=== PATIENT | female | born 1970 ===

== ENCOUNTER 2017-02-05 09:17 | Emergency (ER) | payer MEDICAID, OTHER ==
[2017-02-05 10:17] VITALS: BP 113/58
--- NOTE | 2017-02-05 10:20 | UC ---
jaron Lewis Timothy, scribed for Sarah Seymour MD on 02/05/17 at 0946 . Complaint Female HPI - HPI Summary HPI Summary: Alexa Ghotra is a 46 yo female presenting to [facility] with vaginal bleeding since . She is accompanied by her sister in room. Pt notes only a small amount of blood when using the bathroom, and a positive home test 3 weeks ago with LNMP 11/27/16. She notes some nausea. When she sleeps on her right side she notes pain in her right abd, alleviated with change in position, most recently last night. She denies any current pain or fever, as well as FLOYD, eye pain, sore throat, CP, SOB, rash. Her MHx includes , faint heart murmur. A1, miscarriage. Her last was 2010, delivered 2011. She is from [place] and is visiting family. - History Of Current Complaint Chief Complaint: UCGU Stated Complaint: VAGINAL BLEEDING Time Seen by Provider: 02/05/17 09:58 Hx Obtained From: Patient Hx Last Menstrual Period: 11/27/16 Onset/Duration: Sudden Onset, Lasting Days, Still Present Timing: Constant Severity Initially: Moderate Severity Currently: Moderate Pain Intensity: 0 Pain Scale Used: 0-10 Numeric Associated Signs And Symptoms: Positive: Vaginal Bleeding/Discharge - Risk Factors Ectopic Risk Factor: Maternal Age ^ 30 - Allergies/Home Medications Allergies/Adverse Reactions: Allergies Allergy/AdvReac Type Severity Reaction Status Date / Time No Known Allergies Allergy Verified 02/05/17 09:25 Home Medications: Home Medications NK [No Home Medications Reported] 02/05/17 [History Confirmed 02/05/17] PMH/Surg Hx/FS Hx/Imm Hx Cardiovascular History: Other Other Cardiovascular History: murmur - Surgical History Surgical History: Yes Surgery Procedure, Year, and Place: c section - Family History Known Family History: Positive: Cardiac Disease, Diabetes - II Negative: Hypertension - Social History Alcohol Use: None Substance Use Type: None Smoking Status (MU): Never Smoked Tobacco Review of Systems Constitutional: Negative Skin: Negative Eyes: Negative ENT: Negative Respiratory: Negative Cardiovascular: Negative Gastrointestinal: Abdominal Pain - when sleeping on right side, Nausea Genitourinary: Other - vaginal bleeding Motor: Negative Neurovascular: Negative Musculoskeletal: Negative Neurological: Negative Psychological: Negative All Other Systems Reviewed And Are Negative: Yes Physical Exam Triage Information Reviewed: Yes Appearance: Well-Appearing, No Pain Distress, Well-Nourished Vital Signs: Initial Vital Signs Temp 99.1 F 02/05/17 09:19 Pulse 77 02/05/17 09:19 Resp 16 02/05/17 09:19 BP 121/65 02/05/17 09:19 Pulse Ox 100 02/05/17 09:19 Vital Signs Reviewed: Yes Eye Exam: Normal ENT Exam: Normal ENT: Positive: Normal ENT inspection Dental Exam: Normal Neck exam: Normal Neck: Positive: Supple, No Lymphadenopathy Respiratory Exam: Normal Respiratory: Positive: Chest non-tender, Lungs clear, Normal breath sounds, No respiratory distress Cardiovascular Exam: Normal Cardiovascular: Positive: RRR, Pulses Normal, Brisk Capillary Refill, Murmur:Sys :Grade _?_/ - I-II Abdominal Exam: Normal Abdomen Description: Positive: Nontender, No Organomegaly, Soft Bowel Sounds: Positive: Present Musculoskeletal Exam: Normal Musculoskeletal: Positive: Strength Intact Neurological Exam: Normal - nonfocal, grossly intact Psychological Exam: Normal - conversing easily and appropriately Skin Exam: Normal Skin: Negative: rashes Complaint Female Dx - Course Course Of Treatment: Alexa Ghotra is a 46 yo female presenting to [facility] with vaginal bleeding for the past day S/P positive home test 3 weeks ago, [facility] 11/27/16. Pt medication list reviewed this visit. Her urine test was positive. Urine dip noted. Pt was counseled the dangers of bleeding early in , and was counseled to present to [facility] for further evaluation and management. Pt was offered EMS for transport, which she declined. Pt will present to [facility] by private car, sister will drive. Pelvic exam deferred here. Pt was counseled to have imaging placed on a disc to be reviewed by her [facility] in [place]. She is not traveling for several days. - Differential Dx/Diagnosis Differential Diagnosis/HQI/PQRI: Other - miscarriage Provider Diagnoses: vaginal bleeding in - Physician Notifications Discussed Patient Care With: Emre Carter - Discussed Pt condition, will relay information to provider at [facility] Time Discussed With Above Provider: 10:13 Discharge - Discharge Plan Condition: Stable Disposition: [facility] Discharge Disposition Comment: transfer to [facility] by private car for further evaluation The documentation as recorded by the jaron whiting Timothy accurately reflects the service I personally performed and the decisions made by me, Sarah Seymour MD.
== END 2017-02-05 10:22 | disposition short-term general hospital (02) ==
LOC: UCEAST 09:17
DX: O20.9 Hemorrhage in early pregnancy, unspecified (principal); R11.0 Nausea; R10.9 Unspecified abdominal pain; Z3A.00 Weeks of gestation of pregnancy not specified
CPT/HCPCS: 81003; 84702; 87086; 99202; G0463

== ENCOUNTER 2017-02-05 11:36 | Emergency (ER) | payer OTHER ==
--- NOTE | 2017-02-05 15:50 | RAD ---
Indication: Vaginal bleeding. Real-time sonography of the was performed. There is a single intrauterine gestation with a gestational sac size of 1.8 cm. The mean sac size is approximately 4 mm. Estimated gestational age is 6 weeks 1 day. heart activity could not be documented. This may be due to early gestational age. Follow-up exam is suggested. The right ovary measures 2.4 x 2.0 x 1.9 cm. IMPRESSION: There is a single intrauterine gestation with a crown-rump length of approximately 4 mm corresponding to gestational age is 6 weeks 1 day. Estimated date of delivery is September 28, 2017. heart activity could not be definitively identified which may be due to early gestational age. Follow-up exam is suggested.
[2017-02-05 15:58] LABS: Hematocrit 37 % (35-47); Hemoglobin 12.4 g/dl (12.0-16.0); Mean Corpuscular HGB Conc 33 g/dl (31-36); Mean Corpuscular Hemoglobin 32 pg (27-31); Mean Corpuscular Volume 97 fL (80-97); Mean Platelet Volume 9 um3 (7.4-10.4); Red Blood Count 3.86 10^6/ul (4.0-5.4); Red Cell Distribution Width 13 % (10.5-15)
[2017-02-05 16:10] VITALS: BP 119/43
[2017-02-05 16:14] LABS: Albumin 4.2 g/dL (3.2-5.2); BUN/Creatinine Ratio 11.3 (8-20); Calcium 9.3 mg/dL (8.6-10.3); EGFR African American 160.4 (>60); EGFR Non-African American 124.7 (>60); Globulin 3.3 g/dL (2-4); Potassium 3.5 mmol/L (3.5-5.0); Total Bilirubin 0.7 mg/dL (0.2-1.0); Total Protein 7.5 g/dL (6.4-8.9)
--- NOTE | 2017-02-09 10:01 | ED ---
Kenna Lewis Thomas, scribed for Arcadoi Zimmerman MD on 02/05/17 at 1347 . GI/ HPI - HPI Summary HPI Summary: The pt is a 46 y/o F referred from [facility] and presenting to the ED c/o vaginal bleeding that began yesterday. The pt notes only a small amount of blood when using the bathroom. The pt had a positive home test 3 weeks ago and a positive urine test today at [facility] with LNMP 11/27/16. She has missed menses the last two months. She rates her current level of pain 0/10. The pt has been 4 times with 1 miscarriage. The pt is not yet taking vitamins. Estimated date of delivery September 28, 2017. Pt denies abd pain, genital pain, vaginal discharge, CP, SOB. The pt has been 4 times with 1 miscarriage. PMHx: , murmur, A1, miscarriage. Last 2010, delivered 2011. SHx: no tobacco use. The pt lives in [place] and returns there in three weeks. - History of Current Complaint Chief Complaint: EDVaginalBleeding Stated Complaint: ,NEEDS US/SENT BY CC Hx Obtained From: Patient Onset/Duration: Started Days Ago - 1 day, Still Present Timing: Constant Severity: Mild Pain Intensity: 0 Associated Signs and Symptoms: Negative: Discharge, Abdominal Pain, Chest Pain, Other: - NEG: genital pain, SOB Additional Signs & Symptoms: Positive: Positive Test, Other: - missed menses the last 2 months - Allergy/Home Medications Allergies/Adverse Reactions: Allergies Allergy/AdvReac Type Severity Reaction Status Date / Time No Known Allergies Allergy Verified 02/05/17 13:15 PMH/Surg Hx/FS Hx/Imm Hx Previously Healthy: No Cardiovascular History: Reports: Other Cardiovascular Problems/Disorders - Hx murmur Opthamlomology History: Denies: Hx Legally Blind - Surgical History Surgery Procedure, Year, and Place: Infectious Disease History: No Infectious Disease History: Denies: Traveled Outside the [place] in Last 30 Days - Family History Known Family History: Positive: Cardiac Disease, Diabetes - II Negative: Hypertension - Social History Alcohol Use: None Substance Use Type: Reports: None Smoking Status (MU): Never Smoked Tobacco Review of Systems Constitutional: Negative Negative: Fever, Chills Eyes: Negative Negative: Erythema - eyes ENT: Negative Negative: Sore Throat Cardiovascular: Negative Negative: Chest Pain Respiratory: Negative Negative: Shortness Of Breath Gastrointestinal: Negative Negative: Abdominal Pain, Vomiting, Nausea Genitourinary: Other - POS: vaginal bleeding, small amount, onset yesterday Negative: dysuria, hematuria Musculoskeletal: Negative Negative: Edema - leg Skin: Negative Negative: Rash Neurological: Negative, Other - NEG: dizziness Psychological: Normal All Other Systems Reviewed And Are Negative: Yes Physical Exam - Summary Physical Exam Summary: Constitutional: Well-developed, Well-nourished, Alert. (-) Distressed Skin: Warm, Dry HENT: Normocephalic; Atraumatic Eyes: Conjunctiva normal Neck: Musculoskeletal ROM normal neck. (-) JVD, (-) Stridor, (-) Tracheal deviation Cardio: Rhythm regular, rate normal, Heart sounds normal; Intact distal pulses; The pedal pulses are 2+ and symmetric. Radial pulses are 2+ and symmetric. (-) Murmur Pulmonary/Chest wall: Effort normal. (-) Respiratory distress, (-) Wheezes, (-) Rales Abd: Soft, (-) Tenderness, (-) Distension, (-) Guarding, (-) Rebound Musculoskeletal: (-) Edema Lymph: (-) Cervical adenopathy Neuro: Alert, Oriented x3 Psych: Mood and affect Normal Triage Information Reviewed: Yes Vital Signs On Initial Exam: Initial Vitals Temp Pulse Resp BP Pulse Ox 98.7 F 66 20 126/49 99 02/05/17 11:47 02/05/17 11:47 02/05/17 11:47 02/05/17 11:47 02/05/17 11:47 Vital Signs Reviewed: Yes - Valerie Coma Scale Coma Scale Total: 15 Diagnostics - Vital Signs Vital Signs Temp Pulse Resp BP Pulse Ox 02/05/17 13:09 98.9 F 66 20 126/49 98 02/05/17 11:47 98.7 F 66 20 126/49 99 - Laboratory Lab Results: Lab Results 02/05/17 02/05/17 02/05/17 Range/Units 15:40 15:40 15:40 WBC 8.0 (3.5-10.8) 10^3/ul RBC 3.86 L (4.0-5.4) 10^6/ul Hgb 12.4 (12.0-16.0) g/dl Hct 37 (35-47) % MCV 97 (80-97) fL MCH 32 H (27-31) pg MCHC 33 (31-36) g/dl RDW 13 (10.5-15) % Plt Count 274 (150-450) 10^3/ul MPV 9 (7.4-10.4) um3 Neut % (Auto) 66.5 (38-83) % Lymph % (Auto) 25.2 (25-47) % [place] % (Auto) 7.1 (1-9) % Eos % (Auto) 0.5 (0-6) % Baso % (Auto) 0.7 (0-2) % Absolute Neuts (auto) 5.3 (1.5-7.7) 10^3/ul Absolute Lymphs (auto) 2.0 (1.0-4.8) 10^3/ul Absolute Monos (auto) 0.6 (0-0.8) 10^3/ul Absolute Eos (auto) 0 (0-0.6) 10^3/ul Absolute Basos (auto) 0.1 (0-0.2) 10^3/ul Absolute Nucleated RBC 0.01 10^3/ul Nucleated RBC % 0.1 Sodium 138 (133-145) mmol/L Potassium 3.5 (3.5-5.0) mmol/L Chloride 106 (101-111) mmol/L Carbon Dioxide 25 (22-32) mmol/L Anion Gap 7 (2-11) mmol/L BUN 6 (6-24) mg/dL Creatinine 0.53 (0.51-0.95) mg/dL Est GFR ( Amer) 160.4 (>60) Est GFR (Non-Af Amer) 124.7 (>60) BUN/Creatinine Ratio 11.3 (8-20) Glucose 91 (70-100) mg/dL Lactic Acid (0.5-2.0) mmol/L Calcium 9.3 (8.6-10.3) mg/dL Total Bilirubin 0.70 (0.2-1.0) mg/dL AST 12 L (13-39) U/L ALT 9 (7-52) U/L Alkaline Phosphatase 43 (34-104) U/L Total Protein 7.5 (6.4-8.9) g/dL Albumin 4.2 (3.2-5.2) g/dL Globulin 3.3 (2-4) g/dL Albumin/Globulin Ratio 1.3 (1-3) Beta HCG, Quant 5176.00 mIU/mL Blood Type O Positive Antibody Screen Negative 02/05/17 Range/Units 15:40 WBC (3.5-10.8) 10^3/ul RBC (4.0-5.4) 10^6/ul Hgb (12.0-16.0) g/dl Hct (35-47) % MCV (80-97) fL MCH (27-31) pg MCHC (31-36) g/dl RDW (10.5-15) % Plt Count (150-450) 10^3/ul MPV (7.4-10.4) um3 Neut % (Auto) (38-83) % Lymph % (Auto) (25-47) % [place] % (Auto) (1-9) % Eos % (Auto) (0-6) % Baso % (Auto) (0-2) % Absolute Neuts (auto) (1.5-7.7) 10^3/ul Absolute Lymphs (auto) (1.0-4.8) 10^3/ul Absolute Monos (auto) (0-0.8) 10^3/ul Absolute Eos (auto) (0-0.6) 10^3/ul Absolute Basos (auto) (0-0.2) 10^3/ul Absolute Nucleated RBC 10^3/ul Nucleated RBC % Sodium (133-145) mmol/L Potassium (3.5-5.0) mmol/L Chloride (101-111) mmol/L Carbon Dioxide (22-32) mmol/L Anion Gap (2-11) mmol/L BUN (6-24) mg/dL Creatinine (0.51-0.95) mg/dL Est GFR ( Amer) (>60) Est GFR (Non-Af Amer) (>60) BUN/Creatinine Ratio (8-20) Glucose (70-100) mg/dL Lactic Acid 0.8 (0.5-2.0) mmol/L Calcium (8.6-10.3) mg/dL Total Bilirubin (0.2-1.0) mg/dL AST (13-39) U/L ALT (7-52) U/L Alkaline Phosphatase (34-104) U/L Total Protein (6.4-8.9) g/dL Albumin (3.2-5.2) g/dL Globulin (2-4) g/dL Albumin/Globulin Ratio (1-3) Beta HCG, Quant mIU/mL Blood Type Antibody Screen Result Diagrams: 02/05/17 15:40 02/05/17 15:40 Lab Statement: Any lab studies that have been ordered have been reviewed, and results considered in the medical decision making process. - Additional Comments Diagnostic Additional Comments: US Transvaginal. Interpreted by Radiologist. Impression: There is a single intrauterine gestation with a crown-rump length of approximately 4 mm corresponding to gestational age is 6 weeks 1 day. Estimated date of delivery is September 28, 2017. heart activity could not be definitively identified which may be due to early gestational age. Follow-up exam is suggested. GIGU Course/Dx - Course Assessment/Plan: The pt is a 46 y/o F referred from [facility] and presenting to the ED c/o vaginal bleeding that began yesterday. The pt notes only a small amount of blood when using the bathroom. The pt had a positive home test 3 weeks ago and a positive urine test today at [facility] with LNMP 11/27/16. She has missed menses the last two months. She rates her current level of pain 0/10. The pt has been 4 times with 1 miscarriage. The pt is not yet taking vitamins. Estimated date of delivery September 28, 2017. Pt denies abd pain , genital pain, vaginal discharge, CP, SOB. The pt has been 4 times with 1 miscarriage. PMHx: , murmur, A1, miscarriage. Last 2010, delivered 2011. SHx: no tobacco use. The pt lives in [place] and returns there in three weeks. Bloodwork reveals RBC 3.86, MCH 32, AST 12. An US Transvaginal reveals There is a single intrauterine gestation with a crown- rump length of. approximately 4 mm corresponding to gestational age is 6 weeks 1 day. Estimated date of. delivery is September 28, 2017. heart activity could not be definitively identified. which may be due to early gestational age. Follow-up exam is suggested. Patient will be discharged home as stable with follow up from [facility], in three days. Pt is diagnosed with bleeding in early and was told that she needs repeat bloodwork. Pt is agreeable with this plan. She does understand the potential for threatened . - Diagnoses Provider Diagnoses: Bleeding in early Discharge - Discharge Plan Condition: Stable Disposition: HOME Prescriptions: Vit W/ Ferrous Fumara [ Complete] 1 tab PO DAILY #30 tab Patient Education Materials: First Trimester Vaginal Bleed (ED) Referrals: Kodi Garcia MD [Medical Doctor] - 3 Days Additional Instructions: RETURN TO THE EMERGENCY DEPARTMENT FOR CHANGING OR WORSENING SYMPTOMS Also, you need to have repeat bloodwork performed. The documentation as recorded by the Kenna whiting Thomas accurately reflects the service I personally performed and the decisions made by me, Arcadio Zimmerman MD.
== END 2017-02-05 16:08 | disposition home or self-care (01) ==
LOC: ED 11:36
DX: O46.91 Antepartum hemorrhage, unspecified, first trimester (principal); Z3A.01 Less than 8 weeks gestation of pregnancy
CPT/HCPCS: 36415; 76817; 80053; 83605; 84702; 85025; 86850; 86900; 86901; 99282

== ENCOUNTER 2017-02-06 16:23 | Emergency (ER) | payer OTHER ==
[2017-02-06 17:28] LABS: Hematocrit 37 % (35-47); Hemoglobin 12.6 g/dl (12.0-16.0); Mean Corpuscular HGB Conc 34 g/dl (31-36); Mean Corpuscular Hemoglobin 32 pg (27-31); Mean Corpuscular Volume 96 fL (80-97); Mean Platelet Volume 9 um3 (7.4-10.4); Red Blood Count 3.88 10^6/ul (4.0-5.4); Red Cell Distribution Width 13 % (10.5-15)
[2017-02-06 18:43] VITALS: BP 113/60
--- NOTE | 2017-02-07 16:23 | ED ---
Lisandro Lewis Alok, scribed for Naseem Barajas MD on 02/06/17 at 1737 . - HPI Summary HPI Summary: 46F presents to the ED for vaginal bleeding and lower abd pain. Pt is 6 weeks GPA = 4, 2, 1. Pt had sections for both of her children. Pt was last seen at the ED yesterday for light vaginal bleeding and had blood work and US done. Today, pt notes much heavier vaginal bleeding with some clotting, having bleed through 4-5 pads. Her LMP was November 27. Pt recently traveled from [place] to [place] one month ago and is staying until February. - History of Current Complaint Chief Complaint: EDVaginalBleeding Stated Complaint: STOMACH CRAMPS/HEAVY BLEEDING 6KWS PREG Time Seen by Provider: 02/06/17 16:55 Hx Obtained From: Patient Chief Complaint: Pain, Vaginal Bleeding Onset/Duration: Started Days Ago, Atraumatic, Still Present, Worse Since - Today Timing: Constant Severity: Moderate Current Severity: Moderate Pain Intensity: 5 Character: Cramping Aggravating Factors: Nothing Alleviating Factors: Nothing Associated Signs and Symptoms: Positive: Vaginal Bleeding or Discharge - Assessment Hx Now: Yes - Allergies/Home Medications Allergies/Adverse Reactions: Allergies Allergy/AdvReac Type Severity Reaction Status Date / Time No Known Allergies Allergy Verified 02/05/17 13:15 PMH/Surg Hx/FS Hx/Imm Hx Endocrine/Hematology History: Denies: Hx Diabetes Cardiovascular History: Denies: Hx Hypertension - Surgical History Surgery Procedure, Year, and Place: c section Infectious Disease History: No Infectious Disease History: Denies: Traveled Outside the in Last 30 Days - Family History Known Family History: Positive: Cardiac Disease, Diabetes - II Negative: Hypertension - Social History Occupation: Unemployed Alcohol Use: None Substance Use Type: Reports: None Smoking Status (MU): Never Smoked Tobacco Review of Systems Negative: Fever Positive: Abdominal Pain Genitourinary: Other - vaginal bleeding All Other Systems Reviewed And Are Negative: Yes Physical Exam - Physical Exam Triage Information Reviewed: Yes Vital Signs On Initial Exam: Initial Vital Signs Temp 97.3 F 02/06/17 16:26 Pulse 75 02/06/17 16:26 Resp 18 02/06/17 16:26 BP 123/70 02/06/17 16:26 Vital Signs Reviewed: Yes Appearance: Positive: Well-Appearing, No Pain Distress Skin: Positive: Warm, Skin Color Reflects Adequate Perfusion, Dry Head/Face: Positive: Normal Head/Face Inspection Eyes: Positive: Normal ENT: Positive: Normal ENT inspection Neck: Positive: Supple, Nontender Respiratory/Lung Sounds: Positive: Clear to Auscultation, Breath Sounds Present Cardiovascular: Positive: RRR Abdomen Description: Positive: Nontender, Soft Bowel Sounds: Positive: Present Musculoskeletal: Positive: Normal Neurological: Positive: Normal Psychiatric: Positive: Normal, Affect/Mood Appropriate Diagnostics - Vital Signs Vital Signs Temp Pulse Resp BP Pulse Ox 02/06/17 16:52 97.3 F 73 16 118/52 100 02/06/17 16:26 97.3 F 75 18 123/70 - Laboratory Lab Results: Lab Results 02/06/17 02/06/17 Range/Units 17:25 17:25 WBC 11.0 H (3.5-10.8) 10^3/ul RBC 3.88 L (4.0-5.4) 10^6/ul Hgb 12.6 (12.0-16.0) g/dl Hct 37 (35-47) % MCV 96 (80-97) fL MCH 32 H (27-31) pg MCHC 34 (31-36) g/dl RDW 13 (10.5-15) % Plt Count 268 (150-450) 10^3/ul MPV 9 (7.4-10.4) um3 Neut % (Auto) 74.4 (38-83) % Lymph % (Auto) 17.4 L (25-47) % [place] % (Auto) 7.3 (1-9) % Eos % (Auto) 0.3 (0-6) % Baso % (Auto) 0.6 (0-2) % Absolute Neuts (auto) 8.2 H (1.5-7.7) 10^3/ul Absolute Lymphs (auto) 1.9 (1.0-4.8) 10^3/ul Absolute Monos (auto) 0.8 (0-0.8) 10^3/ul Absolute Eos (auto) 0 (0-0.6) 10^3/ul Absolute Basos (auto) 0.1 (0-0.2) 10^3/ul Absolute Nucleated RBC 0.01 10^3/ul Nucleated RBC % 0.1 Beta HCG, Quant 2418.00 mIU/mL Result Diagrams: 02/06/17 17:25 Lab Statement: Any lab studies that have been ordered have been reviewed, and results considered in the medical decision making process. Re-Evaluation - Re-Evaluation First Eval Re-Evaluation Time: 18:35 Change: Unchanged Comment: Discussed pt lab results Course/Dx - Course Course Of Treatment: Ms. Ghotra has had an increase in her bleeding since her visit here. She was stable and did not drop her H&H but her HCG has dropped considerably making this an inevitable AB. We discussed this and she was D/C'd home. - Diagnoses Provider Diagnoses: Incomplete Discharge - Discharge Plan Condition: Good Disposition: HOME Patient Education Materials: Miscarriage (ED) Referrals: Non Staff,Doctor [Primary Care Provider] - The documentation as recorded by the Lisandro whiting Alok accurately reflects the service I personally performed and the decisions made by me, Naseem Barajas MD.
== END 2017-02-06 18:43 | disposition home or self-care (01) ==
LOC: ED 16:23
DX: O03.4 Incomplete spontaneous abortion without complication (principal)
CPT/HCPCS: 36415; 84702; 85025; 99282